=== PATIENT | female | born 1960 | race Caucasian/White ===

== ENCOUNTER 2019-11-20 19:47 | Emergency (ER) | payer OTHER, SELFPAY ==
[2019-11-20 19:54] VITALS: PULSE 88; RESP 16; TEMP 36.2; O2SAT 98; BMI 24.2
--- NOTE | 2019-11-20 19:54 | XRR_ITS ---
PROCEDURE INFORMATION: Exam: XR Chest, 1 View Exam date and time: 11/20/2019 8:26 PM Age: 59 years old Clinical indication: Chest pain; Type not specified; Prior surgery; Surgery type: Breast lump removed. Breast implants. Breast implants removed; Additional info: Cp TECHNIQUE: Imaging protocol: XR of the chest Views: 1 view. COMPARISON: No relevant prior studies available. FINDINGS: Lungs: Unremarkable. No consolidation. Pleural space: Unremarkable. No pleural effusion. No pneumothorax. Heart/Mediastinum: Unremarkable. No cardiomegaly. Bones/joints: Unremarkable. XR/XR chest 1V portable [id number] IMPRESSION: No acute findings.
--- NOTE | 2019-11-20 19:54 | ECG_ITS ---
Measurements Intervals [place] Rate: 65 P: 66 NH: 152 QRS: 62 QRSD: 75 T: 55 QT: 406 QTc: 424 SINUS RHYTHM No previous ECG available for comparison Electronically Signed On 11-21-2019 17:04:22 CDT by James Monroy M.D. [id number]
[2019-11-20 20:18] LABS: Basophils % 0.4 %; Eosinophils # 0.1 10^3/uL (0.0-0.8); Hemoglobin 13.5 g/dL (11.5-15.3); Lymphocytes # 2.9 10^3/uL (0.8-4.8); Lymphocytes % 53.1 %; Mean Corpuscular HGB Conc 32.9 g/dL (30.0-36.0); Mean Corpuscular Hemoglobin 31.5 pg (28.0-34.0); Mean Corpuscular Volume 95.6 fL (81-99); Mean Platelet Volume 9.8 fL (7.4-10.4); Monocytes # 0.4 10^3/uL (0.2-0.9); Monocytes % 6.5 %; Neutrophils # 2.1 10^3/uL (1.8-7.7); Neutrophils % 37.8 %; Nucleated Red Blood Cells % 0 %; Platelet Count 284 10^3/cmm (130-400); Red Blood Count 4.29 10^6/uL (4.1-5.3); Red Cell Distribution Width 12.6 % (12.1-15.1); White Blood Count 5.5 10^3/uL (4.0-10.0)
--- NOTE | 2019-11-20 20:30 | PC.NURSE ---
Jitendra spouse [phone] [employer] phone
[2019-11-20 20:34] LABS: Alanine Aminotransferase 19 U/L (0-33); Albumin Level 4.2 g/dL (3.5-5.2); Alkaline Phosphatase 70 IU/L (35-105); Anion Gap 18.6 (5-19); Aspartate Amino Transferase 23 U/L (0-32); Blood Urea Nitrogen 16 mg/dL (6-20); Calcium 10.1 mg/dL (8.5-10.5); Carbon Dioxide 25 mmol/L (22-29); Chloride 97 mmol/L (98-107); Globulin 3.3 g/dL (1.3-4.6); Glomerular Filtration Rate 56.7 mL/min (90-130); Glucose 187 mg/dL (65-115); Osmolality Calculated 285 mOsm/kg (285-295); Potassium 3.6 mmol/L (3.5-5.1); Sodium 137 mmol/L (136-145); Total Bilirubin 0.2 mg/dL (0.15-1.2); Total Protein 7.5 g/dL (6.6-8.7)
--- NOTE | 2019-11-20 20:34 | W.ED.CHESTPA ---
HPI - Chest Pain General: Chief Complaint: Chest Pain Stated Complaint: CP Time Seen by Provider: 11/20/19 20:14 History of Present Illness: HPI narrative: 59-year-old female whose had epigastric and lower chest discomfort. Seems to be worse after eating, at least today. Did not improve with Tums at home. Her blood pressure shot up so she got worried that it might be her heart. No history of coronary disease. MD complaint: chest pain and chest heaviness Onset (ago): day(s) (3) Timing of current episode: episodic Prior episodes: Yes Onset: during rest Pain location: substernal and epigastric Pain radiation: none Quality: heaviness Relieving factors: nothing Exacerbating factors: eating Associated symptoms: Reports nausea; Deny dyspnea, fever(s), palpitations or vomiting Review of Systems Const: Denies: fever or chills Eyes: Denies: change in vision ENMT: Denies: painful swallowing, dental pain or facial/sinus pain Card: Reports: chest pain and edema; Denies: palpitations or irregular heart rhythm Resp: Denies: shortness of breath, productive cough, non-productive cough or wheezing GI: Reports: nausea; Denies: vomiting : Denies: painful urination or blood in urine Musc: Denies: neck pain, back pain or redness Skin/Breast: Denies: rash, itching or redness Neuro: Denies: headache, dizziness or vertigo Psych: Denies: anxiety PFSH ED PFSH: Social History Smoking and tobacco status: never smoked Physical Exam Const: GENERAL APPEARANCE: well developed ORIENTATION/CONSCIOUSNESS: Yes oriented to person, Yes oriented to place and Yes oriented to time HENMT: COMMON NORMALS: normocephalic, external ears normal and external nose normal HEAD & SCALP: normocephalic FACE & SINUS: normal facial exam NOSE: external nose normal and no nasal discharge EXTERNAL EAR: Yes external ears normal Eye: COMMON NORMALS: PERRL, EOMs intact bilaterally and conjunctivae normal EYELID: eyelids normal CONJUNCTIVA: Yes conjunctivae normal PUPIL: Yes PERRL Neck/C-Spine: GENERAL: No tracheal deviation Chest: COMMONS NORMALS: inspection of chest normal CHEST: No tenderness Resp: COMMON NORMALS: clear to auscultation bilaterally EFFORT & INSPECTION: No tachypneic, No respiratory distress, No retractions, No uses accessory muscles and No tracheal deviation AUSCULTATION: clear to auscultation bilaterally, no rhonchi, no wheezes and lung sounds not diminished Cardio: COMMON NORMALS: regular rate and regular rhythm RATE: regular rate RHYTHM: regular rhythm HEART SOUNDS: no murmurs PERIPHERAL PULSES: radial pulses present GI: INSPECTION: No abdominal distension AUSCULTATION: No hyperactive bowel sounds and No hypoactive bowel sounds PALPATION: Yes tender (Epigastric), No guarding and No rigid PERCUSSION: no dullness to percussion and no tympanic to percussion Neuro: SENSORIUM/ORIENTATION: Yes oriented to person, Yes oriented to place and Yes oriented to time Psych: COMMON NORMALS: mental status grossly normal Skin: COMMON NORMALS: no rashes or lesions noted GENERAL SKIN EXAM: no rashes or lesions noted Course Vital Signs: Vital signs: Vital Signs Temperature 97.2 F L 11/20/19 19:54 Pulse Rate 76 11/21/19 00:09 Respiratory Rate 18 11/21/19 00:09 Blood Pressure 125/80 11/21/19 00:09 Pulse Oximetry 96 11/21/19 00:09 MDM - Chest Pain MDM Narrative: Medical decision making narrative: 59-year-old female presents with chest discomfort, really epigastric discomfort. Her pain was greatly improved with the GI cocktail. She has had 2 EKGs, 2 hours apart, both show a normal sinus rhythm with normal axis, normal intervals, and rates of 65. Her troponins were negative and did not change at 2 hours. Her chest x-ray is negative. Her other labs are benign. She will be discharged. Lab Data: Labs: Lab Results 11/20/19 11/20/19 11/20/19 Range/Units 20:14 20:14 20:14 WBC 5.5 (4.0-10.0) 10^3/ uL RBC 4.29 (4.1-5.3) 10^6/u L Hgb 13.5 (11.5-15.3) g/dL Hct 41.0 (37.0-47.0) % MCV 95.6 (81-99) fL MCH 31.5 (28.0-34.0) pg MCHC 32.9 (30.0-36.0) g/dL RDW 12.6 (12.1-15.1) % Plt Count 284 (130-400) 10^3/c mm MPV 9.8 (7.4-10.4) fL Neut % (Auto) 37.8 % Lymph % (Auto) 53.1 % [place] % (Auto) 6.5 % Eos % (Auto) 2.0 % Baso % (Auto) 0.4 % Neut # (Auto) 2.1 (1.8-7.7) 10^3/u L Lymph # (Auto) 2.9 (0.8-4.8) 10^3/u L [place] # (Auto) 0.4 (0.2-0.9) 10^3/u L Eos # (Auto) 0.1 (0.0-0.8) 10^3/u L Baso # (Auto) 0.0 (0.0-0.1) 10^3/u L Nucleated RBC % (a uto) 0 % Nucleated RBCs # 0.0 /100WBC D-Dimer (0-0.59) ug/mIFE U Sodium 137 (136-145) mmol/L Potassium 3.6 (3.5-5.1) mmol/L Chloride 97 L (98-107) mmol/L Carbon Dioxide 25 (22-29) mmol/L Anion Gap 18.6 (5-19) BUN 16 (6-20) mg/dL Creatinine 1.0 H (0.5-0.9) mg/dL GFR Calculation 56.7 L (90-130) mL/min Glucose 187 H (65-115) mg/dL Calculated Osmolal ity 285 (285-295) mOsm/k g Calcium 10.1 (8.5-10.5) mg/dL Total Bilirubin 0.2 (0.15-1.2) mg/dL AST 23 (0-32) U/L ALT 19 (0-33) U/L Alkaline Phosphata se 70 (35-105) IU/L Troponin T Baselin e 6 (0-10) ng/mL Troponin T 120 Min [place] (0-10) ng/mL Delta Troponin T (0-10) ABS# Total Protein 7.5 (6.6-8.7) g/dL Albumin 4.2 (3.5-5.2) g/dL Globulin 3.3 (1.3-4.6) g/dL 05/02/20 05/02/20 Range/Units 20:14 21:27 WBC (4.0-10.0) 10^3/ uL RBC (4.1-5.3) 10^6/u L Hgb (11.5-15.3) g/dL Hct (37.0-47.0) % MCV (81-99) fL MCH (28.0-34.0) pg MCHC (30.0-36.0) g/dL RDW (12.1-15.1) % Plt Count (130-400) 10^3/c mm MPV (7.4-10.4) fL Neut % (Auto) % Lymph % (Auto) % [place] % (Auto) % Eos % (Auto) % Baso % (Auto) % Neut # (Auto) (1.8-7.7) 10^3/u L Lymph # (Auto) (0.8-4.8) 10^3/u L [place] # (Auto) (0.2-0.9) 10^3/u L Eos # (Auto) (0.0-0.8) 10^3/u L Baso # (Auto) (0.0-0.1) 10^3/u L Nucleated RBC % (a uto) % Nucleated RBCs # /100WBC D-Dimer 0.33 (0-0.59) ug/mIFE U Sodium (136-145) mmol/L Potassium (3.5-5.1) mmol/L Chloride (98-107) mmol/L Carbon Dioxide (22-29) mmol/L Anion Gap (5-19) BUN (6-20) mg/dL Creatinine (0.5-0.9) mg/dL GFR Calculation (90-130) mL/min Glucose (65-115) mg/dL Calculated Osmolal ity (285-295) mOsm/k g Calcium (8.5-10.5) mg/dL Total Bilirubin (0.15-1.2) mg/dL AST (0-32) U/L ALT (0-33) U/L Alkaline Phosphata se (35-105) IU/L Troponin T Baselin e (0-10) ng/mL Troponin T 120 Min [place] 6.00 (0-10) ng/mL Delta Troponin T 0 (0-10) ABS# Total Protein (6.6-8.7) g/dL Albumin (3.5-5.2) g/dL Globulin (1.3-4.6) g/dL Discharge Plan Discharge Patient Disposition: Home, Self-Care Clinical Impression: Chest pain Qualifiers: Chest pain type: unspecified Qualified Code(s): R07.9 - Chest pain, unspecified Condition: Stable Prescriptions: New Prevacid 30 mg capsule,delayed release(DR/EC) 30 mg PO DAILY 28 Days RF: 0 No Action Premarin 0.3 mg Tablet DAILY RF: 0 buspirone 5 mg Tablet 5 mg PO BID RF: 0 Discharge Orders: Discharge Order (Routine); Ordered 11/20/19 Ordered By: Israel Reyna Referrals: Rusty Madrid [Primary Care Provider] - 4-7 days Yonis Patel DO [Family Provider] - Discharge Diet: Advance as tolerated Discharge Activity: Increase activity as tolerated Patient Instructions: Chest Pain (ED), Esophageal Spasm (ED) Activity Restrictions/Additional Instructions: Return for worsening pain despite treatment, vomiting liquids or medications, significant shortness of breath, other concerning symptoms. Discharge Date/Time: 11/21/19 00:10 Coding Level of Care Code ED Filler Shredder Machine for Chg Fwd Exam Comprehensive
[2019-11-20 20:35] LABS: Troponin(5th) Baseline 6 ng/mL (0-10)
[2019-11-20] MEDS: lidocaine 2% viscous 15 ML, aluminum-mag hydrox-simethicon 30 ML, sucralfate oral liq 1 GM PO (21:05)
[2019-11-20 21:13] LABS: D Dimer 0.33 ug/mIFEU (0-0.59)
--- NOTE | 2019-11-20 21:31 | PC.NURSE ---
Pt states pain is now 2/10 from 10/28, remaining in epigastric area, down from substernal. notified
[2019-11-20 21:44] LABS: Troponin 5 2HR Delta 0 ABS# (0-10)
[2019-11-21 00:09] VITALS: BP 125/80; PULSE 76; RESP 18; O2SAT 96
== END 2019-11-21 00:10 | disposition home or self-care (01) ==
PROVIDERS: Emergency Medicine; Emergency Provider Emergency Medicine; PCP Student in an Organized Health Care Education/Training Program
DX: R07.9 Chest pain, unspecified (principal)
CPT/HCPCS: 12345; 36415; 71045; 80053; 84484; 85025; 85378; 93005; 99283

== ENCOUNTER 2022-04-25 16:14 | Emergency (ER) | payer OTHER, SELFPAY ==
[2022-04-25 16:15] VITALS: BP 126/83; PULSE 92; RESP 16; TEMP 36.6; O2SAT 98; BMI 23.3
--- NOTE | 2022-04-25 16:37 | ECG_ITS ---
[facility] Test Date: 2022-04-25 Pat Name: Ciara Jennings Department: Room: Gender: Female Banquet Manager: : 1960 Requested By: Abdi Mead Order Number: [id number] Naseem MD: Janeth Levy M.D. Measurements Intervals [place] Rate: 86 P: 64 NH: 148 QRS: 40 QRSD: 78 T: 52 QT: 368 QTc: 441 Interpretive Statements SINUS RHYTHM POSSIBLE LEFT ATRIAL ENLARGEMENT [-0.1mV P-WAVE IN V1/V2] NONSPECIFIC T-WAVE ABNORMALITY Compared to ECG 11/20/2019 22:26:08 T-wave abnormality now present Electronically Signed On 04-25-2022 17:05:37 CDT by Janeth Levy M.D. [id number]
--- NOTE | 2022-04-25 16:41 | XRR_ITS ---
PROCEDURE INFORMATION: Exam: XR Chest Exam date and time: 04/25/2022 6:14 PM Age: 62 years old Clinical indication: Other: Abd pain; Additional info: Abdominal pain TECHNIQUE: Imaging protocol: Radiologic exam of the chest. Views: 1 view. COMPARISON: CR XR chest 1V portable [id number] 11/20/2019 8:17 PM FINDINGS: Lungs: Unremarkable. No consolidation. Pleural spaces: Unremarkable. No pleural effusion. No pneumothorax. Heart/Mediastinum: Unremarkable. No cardiomegaly. Bones/joints: Unremarkable. XR/XR chest 1V portable [id number] IMPRESSION: No acute findings.
[2022-04-25 17:13] LABS: Basophils % 0.4 %; Eosinophils # 0.1 10^3/uL (0.0-0.8); Eosinophils % 1.5 %; Hematocrit 41.5 % (37.0-47.0); Hemoglobin 13.9 g/dL (11.5-15.3); Lymphocytes # 2.2 10^3/uL (0.8-4.8); Lymphocytes % 41.6 %; Mean Corpuscular HGB Conc 33.5 g/dL (30.0-36.0); Mean Corpuscular Hemoglobin 31.7 pg (28.0-34.0); Mean Corpuscular Volume 94.5 fl (81-99); Mean Platelet Volume 9.7 fL (7.4-10.4); Monocytes # 0.4 10^3/uL (0.2-0.9); Neutrophils # 2.61 10^3/uL (1.8-7.7); Neutrophils % 49.3 %; Nucleated Red Blood Cells % 0 %; Platelet Count 298 10^3/cmm (130-400); Red Blood Count 4.39 10^6/uL (4.1-5.3); Red Cell Distribution Width 12.4 % (12.1-15.1); White Blood Count 5.3 10^3/uL (4.0-10.0)
[2022-04-25 17:30] LABS: Troponin T (5th) Once 6 ng/L (0-10)
[2022-04-25 17:36] LABS: Alanine Aminotransferase 18 U/L (0-33); Alkaline Phosphatase 100 U/L (35-105); Anion Gap 14.6 (5-19); Aspartate Amino Transferase 16 U/L (0-32); Blood Urea Nitrogen 13 mg/dL (8-23); Calcium 9.4 mg/dL (8.5-10.5); Carbon Dioxide 25 mmol/L (22-29); Chloride 104 mmol/L (98-107); Glomerular Filtration Rate 84.8 mL/min (90-130); Glucose 99 mg/dL (65-115); Lipase 27 U/L (13-60); Osmolality Calculated 290 mOsm/kg (285-295); Potassium 3.6 mmol/L (3.5-5.1); Sodium 140 mmol/L (136-145); Total Bilirubin 0.2 mg/dL (0.15-1.2)
--- NOTE | 2022-04-25 18:27 | ED_ITS ---
HPI - Abdominal Pain General: Chief Complaint: Abdominal Pain Stated Complaint: Burning in middle of chest, upper abd Time Seen by Provider: 04/25/22 18:04 Source: patient Mode of arrival: ambulatory Limitations: no limitations History of Present Illness: 62-year-old female who presents here with epigas tric abdominal pain. Patient states that her pain seems to be worse when she lays flat some burning pain in her abdomen that feels like fire going up her chest. States has been fairly constant rates it a 5 out of 10 currently denies any vomiting denies any diarrhea denies any fevers. Associated Symptoms: Denies chills, diarrhea, dysuria, fever(s), nausea and vomiting Review of Systems Const: Denies: fever(s), chills, body aches or change in appetite Eyes: Denies: blurry vision or eye discomfort ENMT: Denies: throat pain or dental pain Card: Denies: chest pain Resp: Denies: dyspnea GI: Denies: abdominal pain, nausea, vomiting or diarrhea : Denies: dysuria Musc: Denies: neck pain or back pain Skin/Breast: Denies: rash Neuro: Denies: headache(s) Psych: Denies: depression Víctor/Lymph: Denies: easy bruising All/Imm: Denies: urticaria PFSH ED PFSH: Medical History (Updated 04/25/22 @ 20:03 by Evgeny Garrett MD) No pertinent past medical history Social History Smoking and tobacco status: never smoked Physical Exam Const: COMMON NORMALS: no acute distress, patient oriented x3 and healthy appearing HENMT: COMMON NORMALS: normocephalic and atraumatic HEAD & SCALP: normocephalic and atraumatic Eye: COMMON NORMALS: Equal, round and reactive pupils present and EOMs intact bilaterally PUPIL: Yes Equal, round and reactive pupils present Neck/C-Spine: COMMON NORMALS: full ROM and supple Chest: COMMONS NORMALS: normal inspection of the chest and normal palpation of entire chest wall Resp: COMMON NORMALS: normal respiratory effort, No retractions, No use of accessory muscles and clear to auscultation bilaterally AUSCULTATION: clear to auscultation bilaterally Cardio: COMMON NORMALS: regular rate, regular rhythm and No murmurs present (Cardio) RATE: regular rate RHYTHM: regular rhythm GI: COMMON NORMALS: Normal to inspection, nondistended, normoactive bowel sounds present, Soft to palpation and no masses PALPATION: Yes Soft to palpation OTHER: epigastric tenderness Extremity: COMMON NORMALS: normal to inspection and full ROM Neuro: COMMON NORMALS: patient oriented x3, moves all extremities and no focal motor deficits Psych: COMMON NORMALS: mental status grossly normal, Normal thought process present and cooperative THOUGHT PROCESS: Normal thought process present Skin: COMMON NORMALS: no rashes or lesions noted and no wounds GENERAL SKIN EXAM: no rashes or lesions noted Course Vital Signs: Vital signs: Vital Signs Temperature 97.8 F 04/25/22 16:15 Pulse Rate 92 04/25/22 16:15 Respiratory Rate 16 04/25/22 16:15 Blood Pressure 126/83 04/25/22 16:15 Pulse Oximetry 98 04/25/22 16:15 Oxygen Delivery Me thod 04/25/22 16:15 MDM - Abdominal Pain Medical Decision Making Patient presents here with abdominal pain history is consistent with likely gastritis with reflux. Her pains resolved here after GI cocktail her blood works normal no signs of acute surgical abdomen or acute coronary syndrome we will start her on Protonix and get her follow-up with GI she is return if worsening she understands agrees to plan. Lab Data : 04/25/22 17:07 04/25/22 17:07 Labs/Radiology: Radiology Impressions Chest X-Ray 04/25/22 16:41 IMPRESSION: No acute findings. Laboratory Results WBC 5.3 10^3/uL (4.0-10.0) 04/25/22 17:07 RBC 4.39 10^6/uL (4.1-5.3) 04/25/22 17:07 Hgb 13.9 g/dL (11.5-15.3) 04/25/22 17:07 Hct 41.5 % (37.0-47.0) 04/25/22 17:07 MCV 94.5 fl (81-99) 04/25/22 17:07 MCH 31.7 pg (28.0-34.0) 04/25/22 17:07 MCHC 33.5 g/dL (30.0-36.0) 04/25/22 17:07 RDW 12.4 % (12.1-15.1) 04/25/22 17:07 Plt Count 298 10^3/cmm (130-400) 04/25/22 17:07 MPV 9.7 fL (7.4-10.4) 04/25/22 17:07 Neut % (Auto) 49.3 % 04/25/22 17:07 Lymph % (Auto) 41.6 % 04/25/22 17:07 [place] % (Auto) 7.0 % 04/25/22 17:07 Eos % (Auto) 1.5 % 04/25/22 17:07 Baso % (Auto) 0.4 % 04/25/22 17:07 Neut # (Auto) 2.61 10^3/uL (1.8-7.7) 04/25/22 17:07 Lymph # (Auto) 2.2 10^3/uL (0.8-4.8) 04/25/22 17:07 [place] # (Auto) 0.4 10^3/uL (0.2-0.9) 04/25/22 17:07 Eos # (Auto) 0.1 10^3/uL (0.0-0.8) 04/25/22 17:07 Baso # (Auto) 0.0 10^3/uL (0.0-0.1) 04/25/22 17:07 Nucleated RBC % (auto) 0 % 04/25/22 17:07 Nucleated RBCs # 0.0 /100WBC 04/25/22 17:07 Sodium 140 mmol/L (136-145) 04/25/22 17:07 Potassium 3.6 mmol/L (3.5-5.1) 04/25/22 17:07 Chloride 104 mmol/L (98-107) 04/25/22 17:07 Carbon Dioxide 25 mmol/L (22-29) 04/25/22 17:07 Anion Gap 14.6 (5-19) 04/25/22 17:07 BUN 13 mg/dL (8-23) 04/25/22 17:07 Creatinine 0.7 mg/dL (0.5-0.9) 04/25/22 17:07 GFR Calculation 84.8 mL/min (90-130) L 04/25/22 17:07 Glucose 99 mg/dL (65-115) 04/25/22 17:07 Calculated Osmolality 290 mOsm/kg (285-295) 04/25/22 17:07 Calcium 9.4 mg/dL (8.5-10.5) 04/25/22 17:07 Total Bilirubin 0.2 mg/dL (0.15-1.2) 04/25/22 17:07 AST 16 U/L (0-32) 04/25/22 17:07 ALT 18 U/L (0-33) 04/25/22 17:07 Alkaline Phosphatase 100 U/L (35-105) 04/25/22 17:07 Troponin T Gen 5 ng/L 6 ng/L (0-10) 04/25/22 17:07 Troponin T 120 Minute 6.00 ng/L (0-10) 04/25/22 18:58 Delta Troponin T 0 ABS# (0-10) 04/25/22 18:58 Total Protein 7.0 g/dL (6.6-8.7) 04/25/22 17:07 Albumin 4.0 g/dL (3.5-5.2) 04/25/22 17:07 Globulin 3.0 g/dL (1.3-4.6) 04/25/22 17:07 Lipase 27 U/L (13-60) 04/25/22 17:07 Urine Color Yellow (Yellow) 04/25/22 19:34 Urine Appearance Clear (CLEAR) 04/25/22 19:34 Urine pH 6.5 (5-7) 04/25/22 19:34 Ur Specific [place] 1.005 (1.005-1.030) 04/25/22 19:34 Urine Protein Neg (Negative) 04/25/22 19:34 Urine Glucose (UA) Norm (Normal) 04/25/22 19:34 Urine Ketones 1+ (Negative) H 04/25/22 19:34 Urine Blood Neg (Negative) 04/25/22 19:34 Urine Nitrate Negative (Negative) 04/25/22 19:34 Urine Bilirubin Neg (Negative) 04/25/22 19:34 Urine Urobilinogen Norm mg/dL (Negative) 04/25/22 19:34 Ur Leukocyte Esterase Negative (Negative) 04/25/22 19:34 Discharge Plan Discharge Patient Disposition: Home Clinical Impression: Abdominal pain Qualifiers: Abdominal location: epigastric Qualified Code(s): R10.13 - Epigastric pain Condition: Stable Prescriptions: New Protonix 40 mg tablet,delayed release (DR/EC) 40 mg PO DAILY Qty: 60 0RF No Action Premarin 0.3 mg Tablet DAILY buspirone 5 mg Tablet 5 mg PO BID Discharge Orders: Discharge ED (Routine); Ordered 04/25/22 Ordered By: Evgeny Garrett Referrals: Rusty Madrid [Primary Care Provider] - Regan Grier MD [Physician] - 1-3 days Discharge Diet: Advance as tolerated Discharge Activity: Resume usual activity Patient Instructions: Gastritis (ED), Abdominal Pain (ED) Coding Level of Care Code ED Director Of Institutional Research for [employer] Fwd Exam Comprehensive
[2022-04-25 19:00] VITALS: BP 119/76; PULSE 86; RESP 16; O2SAT 96
[2022-04-25] MEDS: lidocaine 2% viscous 15 ML, aluminum-mag hydrox-simethicon 30 ML, sucralfate oral liq 1 GM PO (19:29)
[2022-04-25 19:38] LABS: Troponin 5 2HR Delta 0 ABS# (0-10)
[2022-04-25 19:42] LABS: Add Urine Microscopic? NO; Charge for UA Resulting for Rev
[2022-04-25 19:45] LABS: Bilirubin Urine Neg (Negative); Blood Urine Neg (Negative); Glucose Urine UA Norm (Normal); Ketones Urine 1+ (Negative); Leukocyte Esterase Urine Negative (Negative); Nitrate Urine Negative (Negative); Protein Urine Neg (Negative); Specific Gravity, Urine 1.005 (1.005-1.030); Urine Appearance Clear (CLEAR); Urine Color Yellow (Yellow); Urobilinogen Urine Norm (Negative); pH Urine 6.5 (5-7)
[2022-04-25] MEDS: ondansetron 2 mg/ML SDV 2 mL 4 MG IVP (20:00)
[2022-04-25 20:35] VITALS: BP 123/80; PULSE 79; RESP 16; O2SAT 95
--- NOTE | 2022-04-26 11:16 | DCPLANNER ---
Addendum entered by Marika Salmeron 05/09/22 10:40: wastewater project manager received the following message from Internal Medicine regarding follow up appointment: Made an appointment called pt and she wanted to go to her primary care first so I canceled what I made. Original Note: wastewater project manager had message to schedule a follow up appointment for patient with internal medicine. wastewater project manager sent patients information to the front office staff at internal medicine. Patients information will be printed and reviewed. Clinic will call patient with appointment.
== END 2022-04-25 20:38 | disposition home or self-care (01) ==
PROVIDERS: Family Medicine; Emergency Provider Emergency Medicine; PCP Student in an Organized Health Care Education/Training Program
DX: R10.13 Epigastric pain (principal)
CPT/HCPCS: 36415; 71045; 80053; 81003; 83690; 84484; 85025; 93005; 96374; 99285; J2405

== ENCOUNTER 2023-12-16 15:43 | Outpatient (CLI) | payer SELFPAY ==
--- NOTE | 2023-12-16 16:00 | CT_ITS ---
WS: [id number] CT CALCIUM SCORE REASON FOR VISIT: HYPERLIPIDEMIA; Coronary artery disease risk assessment COMPARISON: None TECHNIQUE: Noncontrast coronary CT in combination with quantitative analysis performed on a separate workstation were used to determine CACS (Agatston score) TOTAL EXAM DOSE: 42.78 mGy.cm ECG GATING: Prospective SCAN RANGE: Pulmonary artery bifurcation to Inferior aspect of heart COMPLICATIONS: None FINDINGS: Technical Quality/Examination Quality: Good Limitaiton: None OVERALL SCORES Total calcium score: 6 Total volume score: 19 mm3 Percentile: 50th-75th percentile ARTERY SCORES Left main coronary artery: N/A Left anterior descending artery: 2 Left circumflex artery: 2 Right coronary artery: 2 OTHER FINDINGS: Mediastinum: Normal. Thoracic aorta: Normal. Lungs: Partially visualized appear well aerated Upper Abdomen: Normal. MINIMAL: 1-10 MILD: 11-100 MODERATE: 101-400 SEVERE:>400 CT/CT heart w calcium score [id number] IMPRESSION: 1. Total calcium score of 6 correlates with minimal coronary artery disease. 2. This is between the 50th and 75th percentile for females between the ages o f 60 and 64 GRADING OF CORONARY ARTERY DISEASE (BASED ON TOTAL CALCIUM SCORE) NO EVIDENCE OF CAD: 0 calcium score
== END 2023-12-16 15:44 | disposition home or self-care (01) ==
LOC: RAD 15:44
PROVIDERS: PCP Student in an Organized Health Care Education/Training Program; Visit Provider Family Medicine
DX: E78.5 Hyperlipidemia, unspecified (principal)
CPT/HCPCS: 75571